=== PATIENT | female | born 2000 | race Caucasian/White ===

== ENCOUNTER 2022-05-13 19:50 | Emergency (ER) | payer OTHER ==
[~2022-05-13] VITALS: Ht 162.6 cm; Wt 86.6 kg
[2022-05-13] MEDS ORDERED: NS 1,000 ML IV ONE (23:15)
[2022-05-13 23:39] LABS: BASO # 0.1 10^3/uL (0.0-0.2); BASO % 0.6 % (0.0-1.0); EOS # 0.1 10^3/uL (0.0-0.5); EOS % 0.9 % (0.0-3.0); HEMATOCRIT 45.8 % (36.0-47.0); HEMOGLOBIN 14.5 g/dl (12.0-15.5); LYMPH # 3.2 10^3/uL (1.5-5.0); LYMPH % 36.6 % (24.0-44.0); MEAN CORPUSCULAR HEMOGLOBIN 29.5 pg (27.0-33.0); MEAN CORPUSCULAR HGB CONC 31.7 g/dl (32.0-36.5); MEAN CORPUSCULAR VOLUME 93.3 fl (80.0-96.0); MONO # 0.7 10^3/uL (0.0-0.8); MONO % 7.5 % (2.0-8.0); NEUTROPHILS # 4.7 10^3/uL (1.5-8.5); NEUTROPHILS % 54.2 % (36.0-66.0); PLATELET COUNT, AUTOMATED 189 10^3/uL (150-450); RED BLOOD COUNT 4.91 10^6/uL (4.00-5.40); WHITE BLOOD COUNT 8.8 10^3/uL (4.0-10.0)
[2022-05-14 00:20] LABS: ALBUMIN 3.8 GM/DL (3.2-5.2); ALT/SGPT 18 U/L (12-78); BILIRUBIN,DIRECT < 0.1 MG/DL (0.0-0.2); BILIRUBIN,TOTAL 0.3 MG/DL (0.2-1.0); BLOOD UREA NITROGEN 11 MG/DL (7-18); CALCIUM LEVEL 9.4 MG/DL (8.5-10.1); CARBON DIOXIDE LEVEL 25 MEQ/L (21-32); CHLORIDE LEVEL 109 MEQ/L (98-107); CREATININE FOR GFR 0.73 MG/DL (0.55-1.30); GLOMERULAR FILTRATION RATE > 60.0 (>60); GLUCOSE, FASTING 83 MG/DL (70-100); HCG, SERUM QUANTITATIVE 87 MIU/ML; LIPASE 123 U/L (73-393); MAGNESIUM LEVEL 2.2 MG/DL (1.8-2.4); POTASSIUM SERUM 4.1 MEQ/L (3.5-5.1); SODIUM LEVEL 140 MEQ/L (136-145); TOTAL PROTEIN 7.1 GM/DL (6.4-8.2)
[2022-05-14] MEDS ORDERED: CEFD300C PO (01:37)
[2022-05-14] MEDS ORDERED: CEFDINIR 300 MG CAP (OMNICEF) PO ONE (01:40)
[2022-05-14 01:46] VITALS: BP 117/63
== END 2022-05-14 02:02 | disposition home or self-care (01) ==
LOC: M ED 19:50
DX: O23.41 Unspecified infection of urinary tract in pregnancy, first trimester (principal); O26.891 Other specified pregnancy related conditions, first trimester; R10.2 Pelvic and perineal pain; R00.1 Bradycardia, unspecified; Z3A.01 Less than 8 weeks gestation of pregnancy

== ENCOUNTER 2022-06-09 17:23 | Emergency (ER) | payer OTHER ==
[~2022-06-09] VITALS: Ht 162.6 cm; Wt 86.5 kg
[~2022-06-09 17:23] MED LIST: CEFD300C PO
[2022-06-09 19:54] LABS: BASO % 0.4 % (0.0-1.0); EOS # 0.2 10^3/uL (0.0-0.5); EOS % 1.4 % (0.0-3.0); HEMATOCRIT 43.3 % (36.0-47.0); HEMOGLOBIN 13.8 g/dl (12.0-15.5); LYMPH # 2.1 10^3/uL (1.5-5.0); LYMPH % 18.3 % (24.0-44.0); MEAN CORPUSCULAR HEMOGLOBIN 29.6 pg (27.0-33.0); MEAN CORPUSCULAR HGB CONC 31.9 g/dl (32.0-36.5); MEAN CORPUSCULAR VOLUME 92.7 fl (80.0-96.0); MONO # 0.6 10^3/uL (0.0-0.8); MONO % 5.4 % (2.0-8.0); NEUTROPHILS # 8.4 10^3/uL (1.5-8.5); NEUTROPHILS % 74.1 % (36.0-66.0); PLATELET COUNT, AUTOMATED 184 10^3/uL (150-450); RED BLOOD COUNT 4.67 10^6/uL (4.00-5.40); WHITE BLOOD COUNT 11.4 10^3/uL (4.0-10.0)
[2022-06-09 20:40] LABS: ALBUMIN 3.4 GM/DL (3.2-5.2); ALT/SGPT 19 U/L (12-78); BILIRUBIN,DIRECT < 0.1 MG/DL (0.0-0.2); BILIRUBIN,TOTAL 0.3 MG/DL (0.2-1.0); BLOOD UREA NITROGEN 8 MG/DL (7-18); CALCIUM LEVEL 9.2 MG/DL (8.5-10.1); CARBON DIOXIDE LEVEL 25 MEQ/L (21-32); CHLORIDE LEVEL 105 MEQ/L (98-107); CREATININE FOR GFR 0.64 MG/DL (0.55-1.30); GLOMERULAR FILTRATION RATE > 60.0 (>60); GLUCOSE, FASTING 85 MG/DL (70-100); LIPASE 108 U/L (73-393); POTASSIUM SERUM 3.7 MEQ/L (3.5-5.1); SODIUM LEVEL 137 MEQ/L (136-145); TOTAL PROTEIN 6.9 GM/DL (6.4-8.2)
[2022-06-09 20:49] LABS: HCG, SERUM QUALITATIVE POSITIVE (NEGATIVE)
[2022-06-09 21:00] VITALS: BP 139/82
[2022-06-09 22:02] LABS: RSV AMPLIFICATION NEGATIVE (NEGATIVE)
[2022-06-09 22:06] LABS: HCG, SERUM QUANTITATIVE 55777 MIU/ML
== END 2022-06-10 00:03 | disposition left against medical advice (07) ==
LOC: M ED 17:23
DX: Z53.21 Procedure and treatment not carried out due to patient leaving prior to being seen by health care provider (principal)

== ENCOUNTER 2022-07-03 21:41 | Emergency (ER) | payer OTHER ==
[~2022-07-03] VITALS: Ht 170.2 cm; Wt 107.2 kg
[2022-07-03] MEDS ORDERED: ACETAMINOPHEN TAB 650MG DOSE (2X325MG) PO ONE (22:15)
[2022-07-04] MEDS ORDERED: NS 1,000 ML IV ONE (01:20)
[2022-07-04 02:28] LABS: HEMOGLOBIN 13.4 g/dl (12.0-15.5); MEAN CORPUSCULAR HEMOGLOBIN 29.9 pg (27.0-33.0); MEAN CORPUSCULAR HGB CONC 32.7 g/dl (32.0-36.5); MEAN CORPUSCULAR VOLUME 91.5 fl (80.0-96.0); PLATELET COUNT, AUTOMATED 163 10^3/uL (150-450); RED BLOOD COUNT 4.48 10^6/uL (4.00-5.40); WHITE BLOOD COUNT 15.1 10^3/uL (4.0-10.0)
[2022-07-04 02:51] VITALS: BP 119/62
[2022-07-04] MEDS ORDERED: ONDA4TAB6 PO (02:57)
== END 2022-07-04 03:02 | disposition home or self-care (01) ==
LOC: M ED 21:41
DX: O26.91 Pregnancy related conditions, unspecified, first trimester (principal); R55 Syncope and collapse; O26.891 Other specified pregnancy related conditions, first trimester; M79.10 Myalgia, unspecified site; Z3A.11 11 weeks gestation of pregnancy

== ENCOUNTER → 2022-07-15 | Outpatient (CLI) | payer OTHER ==
[~2022-07-15] MED LIST changes: +ONDA4TAB6 PO
[2022-07-15 14:19] LABS: HEMATOCRIT 39.4 % (36.0-47.0); HEMOGLOBIN 12.9 g/dl (12.0-15.5); MEAN CORPUSCULAR HEMOGLOBIN 29.9 pg (27.0-33.0); MEAN CORPUSCULAR HGB CONC 32.7 g/dl (32.0-36.5); MEAN CORPUSCULAR VOLUME 91.4 fl (80.0-96.0); PLATELET COUNT, AUTOMATED 171 10^3/uL (150-450); RED BLOOD COUNT 4.31 10^6/uL (4.00-5.40); WHITE BLOOD COUNT 12.5 10^3/uL (4.0-10.0)
[2022-07-15 14:49] LABS: HIV 1&2 SCREEN CENTAUR NEGATIVE (NEGATIVE)
[2022-07-15 14:58] LABS: HEPATITIS C VIRUS ABY INDEX 0.1 INDEX (<0.8)
[2022-07-15 15:57] LABS: GC DNA AMPLIFICATION NEGATIVE (NEGATIVE)
== END ==
LOC: M PLALAB 10:34
PROVIDERS: ATTEND Advanced Practice Midwife
DX: Z34.91 Encounter for supervision of normal pregnancy, unspecified, first trimester (principal); Z3A.00 Weeks of gestation of pregnancy not specified

== ENCOUNTER 2022-09-18 18:13 | Outpatient (CLI) | payer OTHER, MEDICARE ==
[~2022-09-18] VITALS: Ht 160 cm; Wt 89.5 kg
[2022-09-18 18:26] VITALS: BP 118/61
[2022-09-18 19:11] LABS: HEMOGLOBIN 12.4 g/dl (12.0-15.5); MEAN CORPUSCULAR HGB CONC 32.6 g/dl (32.0-36.5); PLATELET COUNT, AUTOMATED 163 10^3/uL (150-450); RED BLOOD COUNT 4.13 10^6/uL (4.00-5.40)
[2022-09-18] MEDS ORDERED: RHOGAM 300MCG (1500IU) INJ IM ONE (21:05)
== END 2022-09-18 21:25 | disposition home or self-care (01) ==
LOC: M LDO 18:13
PROVIDERS: ATTEND Obstetrics & Gynecology
DX: O26.852 Spotting complicating pregnancy, second trimester (principal); O26.893 Other specified pregnancy related conditions, third trimester; R10.9 Unspecified abdominal pain; Y92.9 Unspecified place or not applicable; Y93.9 Activity, unspecified; Y99.9 Unspecified external cause status; Z3A.21 21 weeks gestation of pregnancy
CPT/HCPCS: 36415; 76815; 85027; 85384; 85460; 86901; 96372; J2790

== ENCOUNTER → 2022-09-23 | Outpatient (CLI) | payer OTHER | LOC: M WHC 07:27 | PROVIDERS: ATTEND Advanced Practice Midwife | DX: Z34.82 Encounter for supervision of other normal pregnancy, second trimester (principal); Z3A.22 22 weeks gestation of pregnancy ==

== ENCOUNTER 2022-10-03 22:21 | Outpatient (CLI) | payer OTHER ==
[~2022-10-03] VITALS: Ht 162.6 cm; Wt 90.0 kg
[2022-10-03 22:46] VITALS: BP 121/76
[2022-10-03] MEDS ORDERED: HOME MED LIST COMPLETE! XX SCH (23:50)
[2022-10-03] MEDS ORDERED: LR 1,000 ML IV ONE (23:55)
[2022-10-04] MEDS: ONDANSETRON 4MG 2ML VIAL IV SCH ×2 (00:13→06:00)
[2022-10-04] MEDS ORDERED: MORPHINE 4 MG/ML 1ML VIAL IV ONE (00:25)
[2022-10-04 00:32] VITALS: BP 110/57
[2022-10-04 00:56] LABS: HEMATOCRIT 38.3 % (36.0-47.0); HEMOGLOBIN 12.4 g/dl (12.0-15.5); MEAN CORPUSCULAR HEMOGLOBIN 30.1 pg (27.0-33.0); MEAN CORPUSCULAR HGB CONC 32.4 g/dl (32.0-36.5); PLATELET COUNT, AUTOMATED 167 10^3/uL (150-450); RED BLOOD COUNT 4.12 10^6/uL (4.00-5.40); WHITE BLOOD COUNT 12.1 10^3/uL (4.0-10.0)
[2022-10-04 01:10] LABS: ALBUMIN 2.7 G/DL (3.2-5.2); ALKALINE PHOSPHATASE 62 U/L (46-116); ALT/SGPT < 9 U/L (7.0-40); AST/SGOT 17 U/L (<34); BILIRUBIN,TOTAL 0.4 MG/DL (0.3-1.2); BLOOD UREA NITROGEN 7 MG/DL (9-23); CALCIUM LEVEL 8.5 MG/DL (8.5-10.1); CARBON DIOXIDE LEVEL 24 MMOL/L (20-31); CHLORIDE LEVEL 105 MMOL/L (98-107); CREATININE FOR GFR 0.52 MG/DL (0.55-1.30); GLOMERULAR FILTRATION RATE > 60.0 (>60); GLUCOSE, FASTING 72 MG/DL (60-100); POTASSIUM SERUM 4.1 MMOL/L (3.5-5.1); SODIUM LEVEL 139 MMOL/L (136-145); TOTAL PROTEIN 6.2 G/DL (5.7-8.2)
[2022-10-04 05:23] VITALS: BP 106/57
[2022-10-04] MEDS ORDERED: NITROFURANTOIN (MACROBID) 100 MG CAP PO ONE (06:00)
[2022-10-04] MEDS ORDERED: NITR100C2 PO (06:02)
== END 2022-10-04 06:20 | disposition home or self-care (01) ==
LOC: M LDO 22:21
PROVIDERS: ATTEND Advanced Practice Midwife
DX: O23.42 Unspecified infection of urinary tract in pregnancy, second trimester (principal); Z3A.23 23 weeks gestation of pregnancy
CPT/HCPCS: 59025; 76775; 80053; 81001; 85027; 87086; 96374; G0463; J2270; J2405

== ENCOUNTER → 2022-12-19 | Outpatient (REF) | payer MEDICARE, OTHER ==
[~2022-12-19] MED LIST changes: +NITR100C2 PO
== END ==
LOC: M PLALAB 10:25
PROVIDERS: ATTEND Advanced Practice Midwife
DX: Z36.85 Encounter for antenatal screening for Streptococcus B (principal)

== ENCOUNTER → 2022-12-19 | Outpatient (CLI) | payer OTHER ==
[2022-12-19 14:22] LABS: HEMATOCRIT 42.8 % (36.0-47.0); HEMOGLOBIN 13.6 g/dl (12.0-15.5); MEAN CORPUSCULAR HEMOGLOBIN 28.3 pg (27.0-33.0); MEAN CORPUSCULAR HGB CONC 31.8 g/dl (32.0-36.5); MEAN CORPUSCULAR VOLUME 89.2 fl (80.0-96.0); PLATELET COUNT, AUTOMATED 151 10^3/uL (150-450); WHITE BLOOD COUNT 10.1 10^3/uL (4.0-10.0)
== END ==
LOC: M PLALAB 09:37
PROVIDERS: ATTEND Obstetrics & Gynecology
DX: O28.3 Abnormal ultrasonic finding on antenatal screening of mother (principal); Z3A.00 Weeks of gestation of pregnancy not specified

== ENCOUNTER 2023-01-20 15:58 | Inpatient (IN) | payer MEDICARE, OTHER ==
[2023-01-20] VITALS (14 sets, daily range): BP systolic 103–131; BP diastolic 58–92
[~2023-01-20] VITALS: Ht 162.6 cm; Wt 93.8 kg
[2023-01-20] MEDS ORDERED: OXYTOCIN DRIP 30 UNITS in IV 1 EA IV PRN (20:00)
[2023-01-20] MEDS ORDERED: LR 1,000 ML IV SCH (20:00)
[2023-01-20] MEDS ORDERED: PENICILLIN G POTASSIUM 5 MU IV 5 MU in D5W MINI-BAG PLUS 100 ML IV STA (20:00)
[2023-01-20] MEDS ORDERED: LIDOCAINE 1% MDV 20ML VIAL INFIL PRN (20:00)
[2023-01-20] MEDS ORDERED: LACTATED RINGER'S 1000 ML IV STA (20:00)
[2023-01-20] MEDS ORDERED: OXYTOCIN DRIP 30 UNITS in IV 1 EA IV SCH (20:05)
[2023-01-20 20:09] LABS: HEMATOCRIT 38.6 % (36.0-47.0); HEMOGLOBIN 12.2 g/dl (12.0-15.5); MEAN CORPUSCULAR HGB CONC 31.6 g/dl (32.0-36.5); MEAN CORPUSCULAR VOLUME 88.5 fl (80.0-96.0); PLATELET COUNT, AUTOMATED 178 10^3/uL (150-450); RED BLOOD COUNT 4.36 10^6/uL (4.00-5.40); WHITE BLOOD COUNT 13.1 10^3/uL (4.0-10.0)
[2023-01-21] VITALS (9 sets, daily range): BP systolic 114–137; BP diastolic 70–85; O2SAT 97–98
[2023-01-21] MEDS ORDERED: PEN G POT 3,000,000 UNIT/50 ML 3,000,000 UNIT in IV 1 EA IV SCH (00:30)
[2023-01-21] MEDS ORDERED: DOCUSATE SODIUM 100MG CAPSULE PO PRN (00:55)
[2023-01-21] MEDS ORDERED: RHOGAM 300MCG (1500IU) INJ IM SCH (00:55)
[2023-01-21] MEDS ORDERED: ACETAMINOPHEN TAB 650MG DOSE (2X325MG) PO PRN (00:55)
[2023-01-21] MEDS ORDERED: METHYLERGONOVINE MALEATE 0.2 MG TAB PO PRN (00:55)
[2023-01-21] MEDS ORDERED: DIBUCAINE 1% OINTMENT 30GM TOP PRN (00:55)
[2023-01-21] MEDS ORDERED: IBUPROFEN 600MG TAB PO PRN (00:55)
[2023-01-21] MEDS: IBUPROFEN 800 MG TAB PO PRN ×2 (01:12→22:45)
[2023-01-21] MEDS: PRENATAL VITAMINS CHEWABLE TABLET PO SCH (08:13)
[2023-01-21] MEDS: ACETAMINOPHEN 500 MG TAB PO PRN ×2 (08:14→17:32)
[2023-01-21] MEDS ORDERED: CALCIUM CARBONATE 500 MG CHEW U/D PO PRN (12:10)
[2023-01-22 06:00] VITALS: BP 124/75; O2SAT 98
[2023-01-22] MEDS: ACETAMINOPHEN 500 MG TAB PO PRN (06:28)
[2023-01-22] MEDS: PRENATAL VITAMINS CHEWABLE TABLET PO SCH (09:38)
[2023-01-22] MEDS: IBUPROFEN 800 MG TAB PO PRN (14:59)
[2023-01-23] MEDS ORDERED: MEASLES,MUMPS,RUBELLA VACCINE INJ (MMR-II) SC.IMMUN ONE (09:00)
== END 2023-01-22 18:20 | disposition home or self-care (01) | DRG 560 ==
LOC: M LDO 15:58 → M LDI 19:36 → M OBS 01-21 03:40
PROVIDERS: ADMIT Specialist; ATTEND Specialist
PROC: 10E0XZZ Delivery of Products of Conception, External Approach (ICD-10-PCS; principal; 2023-01-21)
DX: O69.82X0 Labor and delivery complicated by other cord entanglement, without compression, not applicable or unspecified (principal); Z37.0 Single live birth; Z3A.39 39 weeks gestation of pregnancy

== ENCOUNTER 2023-08-15 13:15 | Emergency (ER) | payer MEDICAID, OTHER ==
[~2023-08-15] VITALS: Ht 162.6 cm; Wt 88.8 kg
[2023-08-15 13:16] VITALS: TEMP 98.2
[2023-08-15 13:49] LABS: BASO % 0.3 % (0.0-1.0); EOS # 0.1 10^3/uL (0.0-0.5); EOS % 0.6 % (0.0-3.0); HEMATOCRIT 43.9 % (36.0-47.0); HEMOGLOBIN 14.3 g/dl (12.0-15.5); LYMPH # 2.5 10^3/uL (1.5-5.0); LYMPH % 26.7 % (24.0-44.0); MEAN CORPUSCULAR HEMOGLOBIN 29.2 pg (27.0-33.0); MEAN CORPUSCULAR HGB CONC 32.6 g/dl (32.0-36.5); MEAN CORPUSCULAR VOLUME 89.8 fl (80.0-96.0); MONO # 0.6 10^3/uL (0.0-0.8); MONO % 6.3 % (2.0-8.0); NEUTROPHILS # 6.2 10^3/uL (1.5-8.5); NEUTROPHILS % 65.8 % (36.0-66.0); PLATELET COUNT, AUTOMATED 184 10^3/uL (150-450); RED BLOOD COUNT 4.89 10^6/uL (4.00-5.40); WHITE BLOOD COUNT 9.4 10^3/uL (4.0-10.0)
[2023-08-15 14:13] LABS: BLOOD UREA NITROGEN 8 MG/DL (9-23); CALCIUM LEVEL 9.8 MG/DL (8.5-10.1); CARBON DIOXIDE LEVEL 26 MMOL/L (20-31); CHLORIDE LEVEL 107 MMOL/L (98-107); CREATININE FOR GFR 0.64 MG/DL (0.55-1.30); GLOMERULAR FILTRATION RATE > 60.0 (>60); GLUCOSE, FASTING 93 MG/DL (60-100); POTASSIUM SERUM 4.4 MMOL/L (3.5-5.1); SODIUM LEVEL 138 MMOL/L (136-145)
[2023-08-15 15:16] LABS: HCG, SERUM QUANTITATIVE 174947.8 MIU/ML (<4.2)
[2023-08-15] MEDS ORDERED: RHOGAM 300MCG (1500IU) INJ IM ONE (15:50)
[2023-08-15 16:33] VITALS: BP 110/72; O2SAT 99
== END 2023-08-15 16:47 | disposition home or self-care (01) ==
LOC: M ED 13:15
DX: O20.0 Threatened abortion (principal); O20.8 Other hemorrhage in early pregnancy; Z3A.09 9 weeks gestation of pregnancy
CPT/HCPCS: 76801; 80048; 81001; 84702; 85025; 86850; 86900; 86901; 87086; 96372; 99283; J2790

== ENCOUNTER → 2023-09-02 | Outpatient (CLI) | payer OTHER ==
[2023-09-02 14:22] LABS: HEMATOCRIT 40.1 % (36.0-47.0); HEMOGLOBIN 12.8 g/dl (12.0-15.5); MEAN CORPUSCULAR HEMOGLOBIN 29.2 pg (27.0-33.0); MEAN CORPUSCULAR HGB CONC 31.9 g/dl (32.0-36.5); MEAN CORPUSCULAR VOLUME 91.6 fl (80.0-96.0); PLATELET COUNT, AUTOMATED 176 10^3/uL (150-450); RED BLOOD COUNT 4.38 10^6/uL (4.00-5.40); WHITE BLOOD COUNT 7.7 10^3/uL (4.0-10.0)
[2023-09-02 14:55] LABS: HIV 1&2 SCREEN NEGATIVE (NEGATIVE)
[2023-09-02 15:03] LABS: HEPATITIS C VIRUS ABY INDEX < 0.02 INDEX (<0.8)
[2023-09-02 16:35] LABS: CHLAMYDIA DNA AMPLIFICATION NEGATIVE (NEGATIVE); GC DNA AMPLIFICATION NEGATIVE (NEGATIVE)
== END ==
LOC: M PLALAB 10:43
PROVIDERS: ATTEND Advanced Practice Midwife
DX: Z34.81 Encounter for supervision of other normal pregnancy, first trimester (principal); Z3A.00 Weeks of gestation of pregnancy not specified

== ENCOUNTER → 2023-10-20 | Outpatient (REF) | payer OTHER, MEDICARE | LOC: M SFHCWAGY 13:24 | PROVIDERS: ATTEND Advanced Practice Midwife | DX: Z34.82 Encounter for supervision of other normal pregnancy, second trimester (principal) ==

== ENCOUNTER 2023-10-28 19:27 | Emergency (ER) | payer MEDICARE, OTHER ==
[~2023-10-28] VITALS: Ht 162.6 cm; Wt 90.7 kg
[2023-10-28 19:27] VITALS: BP 118/78; TEMP 98.2; O2SAT 94
[2023-10-28 21:24] LABS: RSV AMPLIFICATION NEGATIVE (NEGATIVE)
[2023-10-29] MEDS ORDERED: ACET-897 PO (14:23)
[2023-10-29] MEDS ORDERED: ONDA4TAB6 PO (19:23)
== END 2023-10-29 00:04 | disposition left against medical advice (07) ==
LOC: M ED 19:27
DX: Z53.21 Procedure and treatment not carried out due to patient leaving prior to being seen by health care provider (principal)

== ENCOUNTER 2023-10-29 13:58 | Outpatient (CLI) | payer MEDICARE, OTHER ==
[~2023-10-29] VITALS: Ht 162.6 cm; Wt 94.5 kg
[2023-10-29] MEDS ORDERED: ACET-897 PO (14:23)
[2023-10-29] MEDS ORDERED: HOME MED LIST COMPLETE! XX SCH (14:25)
[2023-10-29 14:26] VITALS: BP 111/66
[2023-10-29] MEDS: LACTATED RINGER'S 1000 ML IV STA (15:12)
[2023-10-29] MEDS: PROMETHAZINE 25MG/ML 1ML VIAL IV ONE (15:12)
[2023-10-29] MEDS: LR 1,000 ML IV SCH (15:57)
[2023-10-29 18:04] LABS: HEMATOCRIT 41.8 % (36.0-47.0); HEMOGLOBIN 13.5 g/dl (12.0-15.5); MEAN CORPUSCULAR HEMOGLOBIN 29.6 pg (27.0-33.0); MEAN CORPUSCULAR HGB CONC 32.3 g/dl (32.0-36.5); MEAN CORPUSCULAR VOLUME 91.7 fl (80.0-96.0); PLATELET COUNT, AUTOMATED 181 10^3/uL (150-450); RED BLOOD COUNT 4.56 10^6/uL (4.00-5.40); WHITE BLOOD COUNT 12.4 10^3/uL (4.0-10.0)
[2023-10-29 18:26] LABS: APPEARANCE, URINE HAZY (CLEAR); BACTERIA, URINE AUTO NEGATIVE (NEGATIVE); BILIRUBIN, URINE AUTO NEGATIVE (NEGATIVE); BLOOD, URINE BLOOD NEGATIVE (NEGATIVE); COLOR, URINE AMBER (YELLOW); GLUCOSE, URINE (UA) AUTO NEGATIVE (NEGATIVE); KETONE, URINE AUTO 2+ mg/dL (NEGATIVE); LEUKOCYTE ESTERASE, URINE AUTO NEGATIVE (NEGATIVE); MUCUS, URINE SMALL (NEGATIVE); NITRITE, URINE AUTO NEGATIVE (NEGATIVE); PROTEIN, URINE AUTO 1+ mg/dL (NEGATIVE); RBC, URINE AUTO 0 /HPF (0-3); SPECIFIC GRAVITY URINE AUTO 1.028 (1.002-1.035); SQUAMOUS EPITHELIAL CELL UR AU 2 /HPF (0-6); WBC, URINE AUTO 1 /HPF (0-3)
[2023-10-29] MEDS ORDERED: ONDA4TAB6 PO (19:23)
== END 2023-10-29 18:55 | disposition home or self-care (01) ==
LOC: M LDO 13:58
PROVIDERS: ATTEND Obstetrics & Gynecology
DX: O21.8 Other vomiting complicating pregnancy (principal); Z3A.19 19 weeks gestation of pregnancy
CPT/HCPCS: 81001; 85027; 96374; G0463; J2550

== ENCOUNTER → 2023-11-13 | Outpatient (CLI) | payer OTHER ==
[~2023-11-13] MED LIST changes: +ACET-897 PO
== END ==
LOC: M WHC 09:59
PROVIDERS: ATTEND Advanced Practice Midwife
DX: Z34.82 Encounter for supervision of other normal pregnancy, second trimester (principal)

== ENCOUNTER → 2023-12-23 | Outpatient (CLI) | payer OTHER ==
[~2023-12-23] MED LIST changes: +ONDA-282 PO; -ONDA4TAB6 PO
[2023-12-23 15:35] LABS: HEMATOCRIT 36.9 % (36.0-47.0); HEMOGLOBIN 11.7 g/dl (12.0-15.5); MEAN CORPUSCULAR HEMOGLOBIN 29.1 pg (27.0-33.0); MEAN CORPUSCULAR HGB CONC 31.7 g/dl (32.0-36.5); MEAN CORPUSCULAR VOLUME 91.8 fl (80.0-96.0); PLATELET COUNT, AUTOMATED 151 10^3/uL (150-450); RED BLOOD COUNT 4.02 10^6/uL (4.00-5.40); WHITE BLOOD COUNT 12.7 10^3/uL (4.0-10.0)
== END ==
LOC: M PLALAB 12:03
PROVIDERS: ATTEND Advanced Practice Midwife
DX: Z34.82 Encounter for supervision of other normal pregnancy, second trimester (principal); Z3A.00 Weeks of gestation of pregnancy not specified
CPT/HCPCS: 36415; 82950; 85027; 86850; 86900; 86901; J2790

== ENCOUNTER → 2024-01-15 | Outpatient (REF) | payer OTHER ==
[2024-01-15 14:26] LABS: GC DNA AMPLIFICATION NEGATIVE (NEGATIVE)
== END ==
LOC: M LAB REF 12:22
PROVIDERS: ATTEND Advanced Practice Midwife
DX: Z34.82 Encounter for supervision of other normal pregnancy, second trimester (principal)

== ENCOUNTER → 2024-01-15 | Outpatient (CLI) | payer OTHER | LOC: M WHC 10:47 | PROVIDERS: ATTEND Advanced Practice Midwife | DX: Z34.82 Encounter for supervision of other normal pregnancy, second trimester (principal) ==

== ENCOUNTER 2024-02-29 14:40 | Observation (INO) | payer MEDICARE, OTHER ==
[2024-02-29] VITALS (20 sets, daily range): BP systolic 77–111; BP diastolic 39–65
[~2024-02-29] VITALS: Ht 162.6 cm; Wt 99.0 kg
[2024-02-29] MEDS ORDERED: HOME MED LIST COMPLETE! XX SCH (15:00)
[2024-02-29] MEDS ORDERED: OXYTOCIN INJ 10UNITS/ML 1ML VIAL IM PRN (15:15)
[2024-02-29] MEDS ORDERED: TRANEXAMIC ACID INJection 1,000 MG in NS 100 ML IV PRN (15:15)
[2024-02-29] MEDS ORDERED: CARBOPROST TROMETHAMINE 250 MCG/ML AMP IM PRN (15:15)
[2024-02-29] MEDS ORDERED: LIDOCAINE 1% MDV 20ML VIAL INFIL PRN (15:15)
[2024-02-29] MEDS ORDERED: METHYLERGONOVINE MALEATE 0.2MG/ML 1ML VIAL IM PRN (15:15)
[2024-02-29] MEDS ORDERED: OXYTOCIN DRIP 30 UNITS in IV 1 EA IV PRN (15:15)
[2024-02-29] MEDS: LACTATED RINGER'S 1000 ML IV STA (15:26)
[2024-02-29] MEDS: PENICILLIN G POTASSIUM 5 MU IV 5 MU in D5W MINI-BAG PLUS 100 ML IV STA (15:36)
[2024-02-29 15:41] LABS: HEMATOCRIT 33.2 % (36.0-47.0); HEMOGLOBIN 10.4 g/dl (12.0-15.5); MEAN CORPUSCULAR HEMOGLOBIN 26.5 pg (27.0-33.0); MEAN CORPUSCULAR HGB CONC 31.3 g/dl (32.0-36.5); MEAN CORPUSCULAR VOLUME 84.5 fl (80.0-96.0); PLATELET COUNT, AUTOMATED 138 10^3/uL (150-450); RED BLOOD COUNT 3.93 10^6/uL (4.00-5.40); WHITE BLOOD COUNT 11.6 10^3/uL (4.0-10.0)
[2024-02-29] MEDS: LR 1,000 ML IV SCH (16:19)
[2024-02-29 16:25] LABS: HEPATITIS C VIRUS ABY INDEX < 0.02 INDEX (<0.8)
[2024-02-29 17:21] LABS: APPEARANCE, URINE HAZY (CLEAR); BACTERIA, URINE AUTO 1+ (NEGATIVE); BILIRUBIN, URINE AUTO NEGATIVE (NEGATIVE); BLOOD, URINE BLOOD NEGATIVE (NEGATIVE); COLOR, URINE YELLOW (YELLOW); GLUCOSE, URINE (UA) AUTO NEGATIVE (NEGATIVE); KETONE, URINE AUTO NEGATIVE (NEGATIVE); LEUKOCYTE ESTERASE, URINE AUTO NEGATIVE (NEGATIVE); MUCUS, URINE SMALL (NEGATIVE); NITRITE, URINE AUTO NEGATIVE (NEGATIVE); PROTEIN, URINE AUTO 2+ mg/dL (NEGATIVE); RBC, URINE AUTO 0 /HPF (0-3); SPECIFIC GRAVITY URINE AUTO 1.019 (1.002-1.035); SQUAMOUS EPITHELIAL CELL UR AU 4 /HPF (0-6); UROBILINOGEN, URINE AUTO 0.2 mg/dL (0.0-2.0); WBC, URINE AUTO 1 /HPF (0-3)
[2024-02-29] MEDS: BICITRA 30ML SOLN UDC PO ONE (17:24)
[2024-02-29] MEDS: PROMETHAZINE 25MG/ML 1ML VIAL IV ONE (17:25)
[2024-02-29] MEDS: BUTORPHANOL 2 MG/ML 1ML VIAL IV ONE (17:25)
[2024-02-29 18:08] LABS: LDH LACTATE DEHYDROGENASE 203 U/L (120-246)
[2024-02-29 18:09] LABS: ALT/SGPT 12 U/L (7.0-40); AST/SGOT 20 U/L (<34); BILIRUBIN,TOTAL 0.8 MG/DL (0.3-1.2); CREATININE FOR GFR 0.79 MG/DL (0.55-1.30); GLOMERULAR FILTRATION RATE > 60.0 (>60)
[2024-02-29 18:11] LABS: URIC ACID 5.6 MG/DL (3.1-7.8)
[2024-02-29 18:52] LABS: TOTAL PROTEIN,RANDOM URINE 35.8 MG/DL (0.0-14.0)
[2024-02-29 18:58] LABS: CREATININE,RANDOM URINE 139.5 MG/DL
[2024-02-29] MEDS: PEN G POT 3,000,000 UNIT/50 ML 3,000,000 UNIT in IV 1 EA IV SCH (21:01)
[2024-03-01 03:00] VITALS: BP 121/60
[2024-03-01] MEDS: ONDANSETRON 4MG 2ML VIAL IV ONE (03:10)
[2024-03-01] MEDS: ACETAMINOPHEN TAB 650MG DOSE (2X325MG) PO ONE (03:26)
[2024-03-01] MEDS: PROMETHAZINE 25MG/ML 1ML VIAL IV ONE (03:50)
[2024-03-01] MEDS: BUTORPHANOL 2 MG/ML 1ML VIAL IV ONE (03:51)
[2024-03-01 07:04] VITALS: BP 106/53
[2024-03-01 08:55] VITALS: BP 101/49
[2024-03-03] MEDS ORDERED: TUMS500C PO (17:30)
== END 2024-03-01 09:35 | disposition home or self-care (01) ==
LOC: M LDO 14:40 → M LDI 15:18 → INTOOBSV 15:18
PROVIDERS: ADMIT Advanced Practice Midwife; ATTEND Advanced Practice Midwife
DX: O47.1 False labor at or after 37 completed weeks of gestation (principal); Z3A.37 37 weeks gestation of pregnancy
CPT/HCPCS: 59025; 81001; 82247; 82570; 83615; 84156; 84450; 84460; 84550; 85027; 86780; 86803; 86850; 86870; 86900; 86901; 87081; 96361; 96365; 96366; 96375; 96376; G0463; J0595; J2405; J2540; J2550

== ENCOUNTER 2024-07-08 07:39 | Day surgery (SDC) | payer OTHER, SELFPAY ==
[~2024-07-08] VITALS: Ht 162.6 cm; Wt 93.5 kg
[~2024-07-08 07:39] MED LIST changes: +TUMS500C PO
[2024-07-08] MEDS ORDERED: NS 1,000 ML IV SCH ×2 (07:55→09:55)
[2024-07-08] MEDS ORDERED: ROCURONIUM BROMIDE 50MG/5ML VIAL As Ordered ONE (08:12)
[2024-07-08] MEDS ORDERED: fentaNYL 100 MCG/2 ML INJECTION As Ordered ONE (08:12)
[2024-07-08] MEDS ORDERED: SUGAMMADEX SODIUM 500 MG/5 ML VIAL (BRIDION) As Ordered ONE (08:12)
[2024-07-08] MEDS ORDERED: MIDAZOLAM INJ 2MG/2ML VIAL As Ordered ONE (08:12)
[2024-07-08] MEDS ORDERED: propofoL 200 MG/20 ML VIAL As Ordered ONE (08:12)
[2024-07-08] MEDS ORDERED: ONDANSETRON 4MG 2ML VIAL As Ordered ONE (08:12)
[2024-07-08] MEDS ORDERED: KETOROLAC 60MG 2ML VIAL As Ordered ONE (08:12)
[2024-07-08] MEDS ORDERED: LIDOCAINE 2% 100MG/5ML SDV (FOR ANES.) As Ordered ONE (08:12)
[2024-07-08 08:44] LABS: HEMATOCRIT 40.9 % (36.0-47.0); HEMOGLOBIN 12.3 g/dl (12.0-15.5); MEAN CORPUSCULAR HEMOGLOBIN 24.8 pg (27.0-33.0); MEAN CORPUSCULAR HGB CONC 30.1 g/dl (32.0-36.5); MEAN CORPUSCULAR VOLUME 82.6 fl (80.0-96.0); PLATELET COUNT, AUTOMATED 206 10^3/uL (150-450); RED BLOOD COUNT 4.95 10^6/uL (4.00-5.40); WHITE BLOOD COUNT 6.5 10^3/uL (4.0-10.0)
[2024-07-08] MEDS ORDERED: fentaNYL 100 MCG/2 ML INJECTION IV PRN (09:55)
[2024-07-08] MEDS ORDERED: HYDROmorphone HCL 2MG/ML 1ML VIAL As Ordered ONE (09:58)
[2024-07-08] MEDS: HYDROMORPHONE HCL 0.5 MG/ 0.5 ML SYRINGE IV PRN (10:25)
[2024-07-08] MEDS: ONDANSETRON 4MG 2ML VIAL IV PRN (10:35)
[2024-07-08] MEDS: oxyCODONE 5MG TAB PO PRN (10:36)
[2024-07-08] MEDS ORDERED: ONDANSETRON 4MG 2ML VIAL IV PRN (10:40)
[2024-07-08] MEDS: METOCLOPRAMIDE INJ 10MG/2ML VIAL IV PRN (11:53)
[2024-07-08 12:11] VITALS: BP 106/58; TEMP 97.2; O2SAT 98
== END 2024-07-08 12:15 | disposition home or self-care (01) ==
LOC: M SDC 07:39
PROVIDERS: ATTEND Obstetrics & Gynecology
DX: Z30.2 Encounter for sterilization (principal); K21.9 Gastro-esophageal reflux disease without esophagitis
CPT/HCPCS: 36415; 58661; 81025; 85027; 86850; 86900; 86901; 88302; J0665; J1100; J1171; J1885; J2250; J2405; J2765; J3010

== ENCOUNTER → 2025-02-01 | Outpatient (CLI) | payer OTHER | LOC: M WHC 12:08 | PROVIDERS: ATTEND Physician Assistant | DX: N93.9 Abnormal uterine and vaginal bleeding, unspecified (principal); N83.291 Other ovarian cyst, right side ==

== ENCOUNTER 2025-03-06 11:50 | Emergency (ER) | payer OTHER ==
[~2025-03-06] VITALS: Ht 162.6 cm; Wt 87.7 kg
[2025-03-06 11:55] VITALS: TEMP 96.7
[2025-03-06 12:45] LABS: BASO # 0.0 10^3/uL (0.0-0.2); BASO % 0.5 % (0.0-1.0); EOS # 0.1 10^3/uL (0.0-0.5); EOS % 1.1 % (0.0-3.0); LYMPH # 2.7 10^3/uL (1.5-5.0); LYMPH % 35.0 % (24.0-44.0); MONO # 0.5 10^3/uL (0.0-0.8); MONO % 6.6 % (2.0-8.0); NEUTROPHILS # 4.3 10^3/uL (1.5-8.5); NEUTROPHILS % 56.5 % (36.0-66.0); PLATELET COUNT, AUTOMATED 186 10^3/uL (150-450)
[2025-03-06 12:57] LABS: KETONE, URINE AUTO RFX NEGATIVE (NEGATIVE); LEUKOCYTE ESTERASE UR AUTO RFX NEGATIVE (NEGATIVE); MUCUS, URINE RFX SMALL (NEGATIVE); NITRITE, URINE AUTO RFX NEGATIVE (NEGATIVE); RBC, URINE AUTO RFX 1 /HPF (0-3); SQUAM EPITHELIAL CELL UR AURFX 59 /HPF (0-6); WBC, URINE AUTO RFX 4 /HPF (0-3)
[2025-03-06 13:17] LABS: CALCIUM LEVEL 9.8 MG/DL (8.5-10.1); CARBON DIOXIDE LEVEL 26 MMOL/L (20-31); CHLORIDE LEVEL 104 MMOL/L (98-107); CREATININE FOR GFR 0.73 MG/DL (0.55-1.30); GLOMERULAR FILTRATION RATE > 90.0 (>60); HCG, SERUM QUANTITATIVE < 2.6 MIU/ML (<4.2); POTASSIUM SERUM 4.2 MMOL/L (3.5-5.1); SODIUM LEVEL 141 MMOL/L (136-145)
[2025-03-06 15:11] VITALS: BP 121/83; O2SAT 97
== END 2025-03-06 15:12 | disposition home or self-care (01) ==
LOC: M ED 11:50
DX: Z32.02 Encounter for pregnancy test, result negative (principal); Z87.42 Personal history of other diseases of the female genital tract

== ENCOUNTER → 2025-05-10 | Outpatient (REF) | payer MEDICAID, OTHER, SELFPAY | LOC: M PLALAB 08:55 | PROVIDERS: ATTEND Nurse Practitioner Family | DX: Z12.4 Encounter for screening for malignant neoplasm of cervix (principal) ==

== ENCOUNTER 2025-06-11 16:49 | Emergency (ER) | payer OTHER, SELFPAY ==
[~2025-06-11] VITALS: Ht 162.6 cm; Wt 85.4 kg
[2025-06-11 17:52] LABS: APPEARANCE, URINE HAZY (CLEAR); BACTERIA, URINE AUTO NEGATIVE (NEGATIVE); BILIRUBIN, URINE AUTO 1+ (NEGATIVE); BLOOD, URINE BLOOD NEGATIVE (NEGATIVE); GLUCOSE, URINE (UA) AUTO NEGATIVE (NEGATIVE); KETONE, URINE AUTO NEGATIVE (NEGATIVE); LEUKOCYTE ESTERASE, URINE AUTO TRACE (NEGATIVE); MUCUS, URINE LARGE (NEGATIVE); NITRITE, URINE AUTO NEGATIVE (NEGATIVE); PROTEIN, URINE AUTO 2+ mg/dL (NEGATIVE); RBC, URINE AUTO 0 /HPF (0-3); SPECIFIC GRAVITY URINE AUTO 1.025 (1.002-1.035); SQUAMOUS EPITHELIAL CELL UR AU 8 /HPF (0-6); UROBILINOGEN, URINE AUTO 4.0 mg/dL (0.0-2.0); WBC, URINE AUTO 3 /HPF (0-3)
[2025-06-11 17:54] LABS: BASO # 0.1 10^3/uL (0.0-0.2); BASO % 0.6 % (0.0-1.0); EOS # 0.1 10^3/uL (0.0-0.5); EOS % 0.6 % (0.0-3.0); LYMPH # 2.3 10^3/uL (1.5-5.0); LYMPH % 26.1 % (24.0-44.0); MONO # 0.7 10^3/uL (0.0-0.8); MONO % 7.9 % (2.0-8.0); NEUTROPHILS # 5.8 10^3/uL (1.5-8.5); NEUTROPHILS % 64.6 % (36.0-66.0); PLATELET COUNT, AUTOMATED 195 10^3/uL (150-450)
[2025-06-11 18:16] LABS: ALT/SGPT 18 U/L (7.0-40); AST/SGOT 17 U/L (<34); CALCIUM LEVEL 9.6 MG/DL (8.5-10.1); CARBON DIOXIDE LEVEL 27 MMOL/L (20-31); CHLORIDE LEVEL 106 MMOL/L (98-107); CREATININE FOR GFR 0.79 MG/DL (0.55-1.30); GLOMERULAR FILTRATION RATE > 90.0 (>60); POTASSIUM SERUM 4.0 MMOL/L (3.5-5.1); SODIUM LEVEL 143 MMOL/L (136-145)
[2025-06-11 19:14] LABS: HIV 1&2 SCREEN NEGATIVE (NEGATIVE)
[2025-06-11 19:45] LABS: GC DNA AMPLIFICATION NEGATIVE (NEGATIVE)
[2025-06-11 20:01] VITALS: BP 119/76; TEMP 98.9; O2SAT 99
== END 2025-06-11 20:02 | disposition home or self-care (01) ==
LOC: M ED 16:49
DX: R10.22 Pelvic and perineal pain left side (principal)